=== PATIENT | female | born 2000 | race Two or more races ===

== ENCOUNTER 2022-07-26 19:20 | Emergency (ER) | payer MEDICAID, OTHER ==
[~2022-07-26] VITALS: Ht 160 cm; Wt 68.0 kg
[2022-07-26 19:20] VITALS: BP 112/67
[2022-07-26] MEDS ORDERED: IBUPROFEN 800 MG TAB PO ONE (20:15)
[2022-07-26] MEDS ORDERED: HYDROcodone-ACET 5/325MG TAB PO ONE (23:15)
== END 2022-07-27 01:52 | disposition left against medical advice (07) ==
LOC: ER 19:20
DX: S52.121A Displaced fracture of head of right radius, initial encounter for closed fracture (principal); V86.69XA Passenger of other special all-terrain or other off-road motor vehicle injured in nontraffic accident, initial encounter; Y93.89 Activity, other specified; Y92.89 Other specified places as the place of occurrence of the external cause; Y99.8 Other external cause status
CPT/HCPCS: 29125; 73090; 73110; 73130